=== PATIENT | male | born 1935 | race Native Hawaiian/Other Pacific Islander ===

== ENCOUNTER → 2016-10-31 | Outpatient (CLI) | payer MEDICARE, BC | END | disposition home or self-care (01) | LOC: GMAB 17:19 | PROVIDERS: ATTEND Family Medicine | DX: Z12.5 Encounter for screening for malignant neoplasm of prostate (principal); I10 Essential (primary) hypertension | CPT/HCPCS: 84443; G0103 ==

== ENCOUNTER → 2017-03-17 | Outpatient (CLI) | payer MEDICARE ==
--- NOTE | 2017-03-19 07:11 | MRI ---
EXAM DESCRIPTION: Brain w/oContrast CLINICAL HISTORY: VERTIGO COMPARISON: CT scan of the head 01/19/2016. TECHNIQUE: Multiplanar, high-field MRI unit, multiple diffusion sequences, multiple conventional sequences without contrast. FINDINGS: Bilateral regions of bright FLAIR and T2-weighted signal in the periventricular white matter of the cerebral hemispheres. . Similar signal bilaterally in the posterior basal ganglia, right more than left. Similar signal in the left thalamus. Bright T2 signal and dark T1 and FLAIR signal in the right thalamus. No hemorrhage, no cerebral edema, no mass-effect. Bright white matter signal in the right side of the josé and in the right cerebral peduncle. Normal signal in the cerebellar hemispheres. No hemorrhage, no cerebral edema, no mass-effect. Concordance of the diffusion and non-diffusion sequences with no evidence of acute or subacute infarction. Cortical sulci, ventricles, and other CSF spaces, and the subdural spaces are physiologic for patient's age. No effacement or displacement. No midline shift. No extra-axial hemorrhage. Normal flow signal void in the major vessels of the [place], and the venous sinuses. IACs are symmetric bilaterally. Minimal bright T2 signal in the left mastoid air cells. Normal signal in the right mastoid air cells. No mass effect in the bilateral cerebellopontine angles. Pituitary gland occupies approximately 50% of the sella. Base of the cerebellar tonsils is above the foramen magnum. Air-fluid level in the left maxillary antrum. Mucoperiosteal thickening in the right antrum. Otherwise unremarkable paranasal sinuses. The bony calvarium is intact. IMPRESSION: 1. 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 No hemorrhage, mass effect, midline shift. 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 2. Normal MRI noncontrast diffusion study with no evidence of acute or subacute infarction or ischemia. 3. Chronic versus acute mastoiditis. Acute paranasal sinusitis involving the left antrum. Electronically signed by: Tim Biggs MD 03/19/2017 7:10 AM CDT Workstation: [id number]
--- NOTE | 2017-03-20 08:16 | RAD ---
EXAM DESCRIPTION: Knee,Left Complete CLINICAL HISTORY: KNEE PAIN COMPARISON: None. IMPRESSION: 3 views of the left knee including crosstable lateral shows no evidence of acute fracture, focal bone destruction, or joint dislocation. Mild narrowing of the medial tibiofemoral compartment is seen consistent with mild osteoarthritic-type changes. Mild hypertrophy and fragmentation of the anterior tibial tuberosity is seen likely representing chronic changes without overlying soft tissue swelling. No significant joint effusion is seen. Moderate vascular calcifications are identified. The AP and oblique views have an correct situs marker on the images. These images are of the left knee. Electronically signed by: Parrish Francisco MD 03/20/2017 8:15 AM CDT
== END | disposition home or self-care (01) ==
LOC: MRI 12:54
PROVIDERS: ATTEND Family Medicine
DX: H81.10 Benign paroxysmal vertigo, unspecified ear (principal); M17.12 Unilateral primary osteoarthritis, left knee